=== PATIENT | female | born 1965 | race Caucasian/White ===

== ENCOUNTER 2024-06-10 07:23 | Day surgery (SDC) | payer OTHER ==
[~2024-06-10] VITALS: Ht 157.5 cm; Wt 52.2 kg
[2024-06-10] MEDS ORDERED: MEPERIDINE 100 MG INJ. 100 MG/ML VIAL ONE (07:52)
[2024-06-10] MEDS ORDERED: MIDAZOLAM HCL 5 MG/5 ML VIAL ONE (07:52)
[2024-06-10] MEDS ORDERED: SIMETHICONE 40 MG/0.6 ML ML ONE (07:54)
[2024-06-10 09:35] VITALS: O2SAT 98
[2024-06-10 14:59] VITALS: BP_SYST 92; PULSE 74; RESP 18
== END 2024-06-10 10:28 | disposition home or self-care (01) ==
LOC: SDS 07:23 → SMU 07:24 → SDS 10:28
PROVIDERS: ATTEND Internal Medicine Gastroenterology
DX: Z09 Encounter for follow-up examination after completed treatment for conditions other than malignant neoplasm (principal); K63.89 Other specified diseases of intestine; K64.8 Other hemorrhoids; E78.5 Hyperlipidemia, unspecified; G47.00 Insomnia, unspecified; Z90.710 Acquired absence of both cervix and uterus; Z79.899 Other long term (current) drug therapy; Z86.010 Personal history of colon polyps
CPT/HCPCS: 45380; 99152; 88305; G0378; J2250; J2175